=== PATIENT | male | born 2000 | race Caucasian/White ===

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

== ENCOUNTER → 2020-06-29 | Outpatient (CLI) | payer MEDICAID ==
[~2020-06-29] MED LIST: CLIN300C12 PO
[2020-06-29 11:59] LABS: BASOPHILS % (AUTO) 0 % (0-10); EOSINOPHILS % (AUTO) 1 % (0-10); HEMATOCRIT 39 % (40-54); HEMOGLOBIN 12.6 G/DL (13.3-17.7); LYMPHOCYTES # (AUTO) 1.9 X 10^3 (1.0-4.0); LYMPHOCYTES % (AUTO) 34 % (12-44); MEAN CORPUSCULAR HEMOGLOBIN 29 PG (25-34); MEAN CORPUSCULAR HGB CONC 33 G/DL (32-36); MEAN CORPUSCULAR VOLUME 88 FL (80-99); MEAN PLATELET VOLUME 11.9 FL (7.4-10.4); MONOCYTES # (AUTO) 0.2 X 10^3 (0.0-1.0); MONOCYTES % (AUTO) 4 % (0-12); NEUTROPHILS # (AUTO) 3.3 X 10^3 (1.8-7.8); NEUTROPHILS % (AUTO) 61 % (42-75); PLATELET COUNT 177 10^3/uL (130-400); WHITE BLOOD COUNT 5.5 10^3/uL (4.3-11.0)
[2020-06-29 12:10] LABS: BUN/CREATININE RATIO 23; CARBON DIOXIDE 28 MMOL/L (21-32); CHLORIDE 99 MMOL/L (98-107); GFR ESTIMATED > 60; GLUCOSE 104 MG/DL (70-105); POTASSIUM 4.2 MMOL/L (3.6-5.0); SODIUM 138 MMOL/L (135-145)
[2020-06-29 12:11] LABS: ALANINE AMINOTRANSFERASE 16 U/L (0-55); ALBUMIN 4.1 GM/DL (3.2-4.5); ALKALINE PHOSPHATASE 271 U/L (40-136); BILIRUBIN,TOTAL 0.2 MG/DL (0.1-1.0); CALCIUM 9.8 MG/DL (8.5-10.1); TOTAL PROTEIN 7.4 GM/DL (6.4-8.2)
== END ==
LOC: LAB FS 11:37
PROVIDERS: ATTEND Family Medicine
DX: U07.1 COVID-19 (principal)
CPT/HCPCS: 36415; 80053; 85025

== ENCOUNTER 2020-08-24 18:49 | Emergency (ER) | payer MEDICAID ==
--- NOTE | 2020-08-24 18:58 | ED Fever ---
History of Present Illness General Stated Complaint: FEVER History of Present Illness Date Seen by Provider: Aug 24, 2020 Time Seen by Provider: 18:53 Initial Comments 20-year-old male brought in with fever, decreased O2 saturation. Patient is has a history of cerebral palsy and diabetes insipidus. Mom reports that earlier today he had a fever greater than 100.2. Couple weeks ago he was treated with azithromycin for respiratory infection. Patient has a cough that has been present for about a month that is improving. Patient typically does not get urinary tract infections. Patient presented to urgent care who then sent him over here for further evaluation. Mom reports they gave him an extra dose of steroids this afternoon. Allergies and Home Medications Allergies Coded Allergies: No Known Drug Allergies (Unverified , 02/02/19) Home Medications Clindamycin HCl 300 Mg Capsule, 300 MG PO TID Prescribed by: VON MCDANIEL on 02/02/192210 Patient Home Medication List Home Medication List Reviewed: Yes Review of Systems Review of Systems Constitutional: No chills; fever; No weakness Respiratory: cough; No short of breath Cardiovascular: no symptoms reported Gastrointestinal: no symptoms reported Genitourinary: no symptoms reported Musculoskeletal: no symptoms reported Skin: no symptoms reported Psychiatric/Neurological: No Symptoms Reported Past Garcwmh-Zsrnhm-Dnrfqz Hx Past Med/Social Hx: Reviewed Nursing Past Med/Soc Hx Patient Social History Recent Hopitalizations: No Past Medical History Surgeries: Yes Orthopedic, Tonsillectomy Respiratory: No Cardiac: No Neurological: Yes Cerebral Palsy Genitourinary: No Gastrointestinal: No Musculoskeletal: No Endocrine: No HEENT: No Cancer: No Psychosocial: No Integumentary: No Blood Disorders: No Physical Exam Vital Signs - First Documented 08/24/20 18:52 Temp 37.4 Pulse 136 Resp 18 B/P (MAP) 154/94 (114) Pulse Ox 95 O2 Delivery Room Air Capillary Refill : Height: '" Weight: lbs. oz. kg; BMI Method: General Appearance: other (Patient small for size, consistent with cerebral palsy, exam was performed in his chair.) HEENT: other (Dry lips,) Neck: No lymphadenopathy (R), No lymphadenopathy (L) Respiratory: No lungs clear, No normal breath sounds; no respiratory distress Cardiovascular: tachycardia Gastrointestinal: non tender, soft, other (G-tube in place, clean dry no signs of infection) Extremities: other (No acute change) Neurologic/Psychiatric: other (Baseline mentation) Skin: No rash Focused Exam Lactate Level 08/24/20 19:05: Lactic Acid Level 3.37*H Lactic Acid Level Laboratory Tests Test 08/24/20 19:05 Lactic Acid Level 3.37 MMOL/L (0.50-2.00) *H Progress/Results/Core Measures Suspected Sepsis SIRS Temperature: Pulse: Respiratory Rate: Laboratory Tests 08/24/20 19:05: White Blood Count 14.4H Blood Pressure / Mean: 08/24/20 19:05: Lactic Acid Level 3.37*H Laboratory Tests 08/24/20 19:05: Creatinine 0.40L, Platelet Count 237, Total Bilirubin 0.2 Results/Orders Lab Results Laboratory Tests Test 08/24/20 19:05 08/24/20 19:26 Range/Units White Blood Count 14.4 H 4.3-11.0 10^3/uL Red Blood Count 4.76 4.35-5.85 10^6/uL Hemoglobin 13.5 13.3-17.7 G/DL Hematocrit 41 40-54 % Mean Corpuscular Volume 87 80-99 FL Mean Corpuscular Hemoglobin 28 25-34 PG Mean Corpuscular Hemoglobin Concent 33 32-36 G/DL Red Cell Distribution Width 12.7 10.0-14.5 % Platelet Count 237 130-400 10^3/uL Mean Platelet Volume 11.5 H 7.4-10.4 FL Immature Granulocyte % (Auto) 0 % Neutrophils (%) (Auto) 84 H 42-75 % Lymphocytes (%) (Auto) 6 L 12-44 % Monocytes (%) (Auto) 10 0-12 % Eosinophils (%) (Auto) 0 0-10 % Basophils (%) (Auto) 0 0-10 % Neutrophils # (Auto) 12.0 H 1.8-7.8 X 10^3 Lymphocytes # (Auto) 0.8 L 1.0-4.0 X 10^3 Monocytes # (Auto) 1.5 H 0.0-1.0 X 10^3 Eosinophils # (Auto) 0.0 0.0-0.3 10^3/uL Basophils # (Auto) 0.0 0.0-0.1 10^3/uL Immature Granulocyte # (Auto) 0.1 0.0-0.1 10^3/uL Neutrophils % (Manual) 83 % Lymphocytes % (Manual) 5 % Monocytes % (Manual) 8 % Eosinophils % (Manual) 0 % Basophils % (Manual) 0 % Band Neutrophils 4 % Sodium Level 142 135-145 MMOL/L Potassium Level 4.2 3.6-5.0 MMOL/L Chloride Level 103 98-107 MMOL/L Carbon Dioxide Level 26 21-32 MMOL/L Anion Gap 13 5-14 MMOL/L Blood Urea Nitrogen 10 7-18 MG/DL Creatinine 0.40 L 0.60-1.30 MG/DL Estimat Glomerular Filtration Rate > 60 BUN/Creatinine Ratio 25 Glucose Level 142 H 70-105 MG/DL Lactic Acid Level 3.37 *H 0.50-2.00 MMOL/L Calcium Level 10.2 H 8.5-10.1 MG/DL Corrected Calcium 10.0 8.5-10.1 MG/DL Total Bilirubin 0.2 0.1-1.0 MG/DL Aspartate Amino Transf (AST/SGOT) 18 5-34 U/L Alanine Aminotransferase (ALT/SGPT) 14 0-55 U/L Alkaline Phosphatase 258 H 40-136 U/L C-Reactive Protein 5.41 H <0.50 MG/DL Total Protein 8.0 6.4-8.2 GM/DL Albumin 4.3 3.2-4.5 GM/DL Urine Color YELLOW Urine Clarity CLEAR Urine pH 8.0 5-9 Urine Specific [place] 1.010 L 1.016-1.022 Urine Protein NEGATIVE NEGATIVE Urine Glucose (UA) NEGATIVE NEGATIVE Urine Ketones NEGATIVE NEGATIVE Urine Nitrite NEGATIVE NEGATIVE Urine Bilirubin NEGATIVE NEGATIVE Urine Urobilinogen 0.2 < = 1.0 MG/DL Urine Leukocyte Esterase NEGATIVE NEGATIVE Urine RBC (Auto) NEGATIVE NEGATIVE Urine RBC NONE /HPF Urine WBC 5-10 H /HPF Urine Squamous Epithelial Cells NONE /HPF Urine Renal Epithelial Cells 10-25 H /HPF Urine Crystals NONE /LPF Urine Bacteria NEGATIVE /HPF Urine Casts NONE /LPF Urine Mucus NEGATIVE /LPF Urine Culture Indicated NO My Orders Orders - AIYANA JULES L DO Cbc With Automated Diff (08/24/20 19:00) Comprehensive Metabolic Panel (08/24/20 19:00) Blood Culture (08/24/20 19:00) Sputum Culture (08/24/20 19:00) Urinalysis (08/24/20 19:00) Urine Culture (08/24/20 19:00) Chest 1 View Ap/Pa Only (08/24/20 19:00) Ed Iv/Invasive Line Start (08/24/20 19:00) Vital Signs Adult Sepsis Patie Q15M (08/24/20 19:00) Lactic Acid Analyzer (08/24/20 19:00) Procalcitonin (Pct) (08/24/20 19:05) Crp Fs (08/24/20 19:05) Manual Differential (08/24/20 19:05) Ceftriaxone (Rocephin) (08/24/20 19:36) Vital Signs/I&O 08/24/20 08/24/20 18:52 20:19 Temp 37.4 Pulse 136 115 Resp 18 20 B/P (MAP) 154/94 (114) 107/68 Pulse Ox 95 96 O2 Delivery Room Air Room Air Capillary Refill : Progress Note : Progress Note Patient with symptoms consistent of a viral syndrome. Patient was given Rocephin IV prior to discharge. Discussed with mom emergent transfer to [facility] versus close observation. This time will have close observation she will return to the ER if his symptoms worsen. Otherwise he will follow-up with his primary care tomorrow for recheck prior to the weekend. Patient is tolerating fluids without difficulty. Patient stable and discharged home Diagnostic Imaging Diagonstic Imaging: Xray Plain Films/CT/US/NM/MRI: chest Comments Date of Exam:08/24/20 CHEST 1 VIEW AP/PA ONLY INDICATION: Sepsis. FINDINGS: Frontal view of the chest demonstrates the lungs to be clear. The heart size and vascularity are normal. No pleural effusions are present. IMPRESSION: Normal portable chest. Reviewed: Reviewed by Me, Reviewed/Discussed Departure Impression Primary Impression: Viral syndrome Disposition: 01 HOME, SELF-CARE Condition: Stable Departure-Patient Inst. Referrals: RICO SHARIF MD (PCP/Family) Primary Care Physician Patient Instructions: VIRAL SYNDROME, Viral Upper Respiratory Infection, Adult (DC) Add. Discharge Instructions: Return to the ER if you have any concerns Follow-up with your primary care provider tomorrow for recheck of his symptoms AIYANA JULES DO Aug 24, 2020 18:58
[2020-08-24 19:19] LABS: HEMATOCRIT 41 % (40-54); HEMOGLOBIN 13.5 G/DL (13.3-17.7); MEAN CORPUSCULAR HEMOGLOBIN 28 PG (25-34); MEAN CORPUSCULAR HGB CONC 33 G/DL (32-36); MEAN CORPUSCULAR VOLUME 87 FL (80-99); MEAN PLATELET VOLUME 11.5 FL (7.4-10.4); PLATELET COUNT 237 10^3/uL (130-400); WHITE BLOOD COUNT 14.4 10^3/uL (4.3-11.0)
[2020-08-24 19:20] LABS: BASOPHILS % (AUTO) 0 % (0-10); EOSINOPHILS % (AUTO) 0 % (0-10); LYMPHOCYTES # (AUTO) 0.8 X 10^3 (1.0-4.0); LYMPHOCYTES % (AUTO) 6 % (12-44); MONOCYTES # (AUTO) 1.5 X 10^3 (0.0-1.0); MONOCYTES % (AUTO) 10 % (0-12); NEUTROPHILS % (AUTO) 84 % (42-75)
--- NOTE | 2020-08-24 19:24 | Diagnostic Imaging Report ---
INDICATION: Sepsis. FINDINGS: Frontal view of the chest demonstrates the lungs to be clear. The heart size and vascularity are normal. No pleural effusions are present. IMPRESSION: Normal portable chest. Dictated by: Dictated on workstation # [id number]
[2020-08-24] MEDS ORDERED: cefTRIAXone 1,000 MG in WATER (STERILE) FOR INJECTION 10 ML IV STA (19:36)
[2020-08-24 19:45] LABS: ALANINE AMINOTRANSFERASE 14 U/L (0-55); ALKALINE PHOSPHATASE 258 U/L (40-136); BILIRUBIN,TOTAL 0.2 MG/DL (0.1-1.0); BUN/CREATININE RATIO 25; CALCIUM 10.2 MG/DL (8.5-10.1); CARBON DIOXIDE 26 MMOL/L (21-32); CHLORIDE 103 MMOL/L (98-107); GFR ESTIMATED > 60; GLUCOSE 142 MG/DL (70-105); POTASSIUM 4.2 MMOL/L (3.6-5.0); SODIUM 142 MMOL/L (135-145)
[2020-08-24 19:46] LABS: ALBUMIN 4.3 GM/DL (3.2-4.5)
[2020-08-24 19:49] LABS: BACTERIA,URINE NEGATIVE /HPF; BILIRUBIN,URINE NEGATIVE (NEGATIVE); CLARITY,URINE CLEAR; COLOR,URINE YELLOW; GLUCOSE, URINE (UA) NEGATIVE (NEGATIVE); KETONES,URINE NEGATIVE (NEGATIVE); LEUKOCYTE ESTERASE ,URINE NEGATIVE (NEGATIVE); NITRITE,URINE NEGATIVE (NEGATIVE); PROTEIN,URINE NEGATIVE (NEGATIVE)
[2020-08-24 19:50] LABS: BAND NEUTROPHILS 4 %; BASOPHILS % (MANUAL) 0 %; EOSINOPHILS % (MANUAL) 0 %; LYMPHOCYTES % (MANUAL) 5 %; MONOCYTES % (MANUAL) 8 %; NEUTROPHILS % (MANUAL) 83 %
[2020-08-24 20:19] VITALS: BP 107/68
== END 2020-08-24 20:19 | disposition home or self-care (01) ==
LOC: EDUNIT# 18:49 → ER FS 18:50
DX: B34.9 Viral infection, unspecified (principal)
CPT/HCPCS: 36415; 71045; 80053; 81000; 83605; 84145; 85007; 85027; 86141; 87040; 87077; 87088; 87186

== ENCOUNTER → 2020-08-25 | Outpatient (CLI) | payer MEDICAID ==
[2020-08-25 12:32] LABS: HEMOGLOBIN 12.3 G/DL (13.3-17.7); MEAN CORPUSCULAR HEMOGLOBIN 28 PG (25-34); WHITE BLOOD COUNT 14.1 10^3/uL (4.3-11.0)
[2020-08-25 12:33] LABS: BASOPHILS % (AUTO) 0 % (0-10); EOSINOPHILS % (AUTO) 0 % (0-10); HEMATOCRIT 40 % (40-54); LYMPHOCYTES # (AUTO) 0.9 X 10^3 (1.0-4.0); MEAN CORPUSCULAR HGB CONC 31 G/DL (32-36); MEAN CORPUSCULAR VOLUME 91 FL (80-99); MEAN PLATELET VOLUME 11.1 FL (7.4-10.4); MONOCYTES # (AUTO) 1.1 X 10^3 (0.0-1.0); NEUTROPHILS # (AUTO) 12.1 X 10^3 (1.8-7.8); NEUTROPHILS % (AUTO) 86 % (42-75); PLATELET COUNT 202 10^3/uL (130-400)
[2020-08-25 12:34] LABS: LYMPHOCYTES % (AUTO) 6 % (12-44); MONOCYTES % (AUTO) 8 % (0-12)
[2020-08-25 13:09] LABS: BUN/CREATININE RATIO 18; CARBON DIOXIDE 27 MMOL/L (21-32); CHLORIDE 101 MMOL/L (98-107); GFR ESTIMATED > 60; GLUCOSE 106 MG/DL (70-105); POTASSIUM 4.6 MMOL/L (3.6-5.0); SODIUM 139 MMOL/L (135-145)
[2020-08-25 13:10] LABS: ALANINE AMINOTRANSFERASE 14 U/L (0-55); ALBUMIN 3.9 GM/DL (3.2-4.5); ALKALINE PHOSPHATASE 244 U/L (40-136); BILIRUBIN,TOTAL 0.3 MG/DL (0.1-1.0); CALCIUM 10.1 MG/DL (8.5-10.1); TOTAL PROTEIN 7.4 GM/DL (6.4-8.2)
== END ==
LOC: LAB FS 11:57
PROVIDERS: ATTEND Family Medicine
DX: R50.9 Fever, unspecified (principal)
CPT/HCPCS: 36415; 80053; 85025

== ENCOUNTER 2020-08-26 11:26 | Emergency (ER) | payer MEDICAID ==
--- NOTE | 2020-08-26 12:07 | ED General ---
General Chief Complaint: Eye Problems Stated Complaint: RT EYE SWELLING Source of Information: Family (parents) Exam Limitations: Other (pt has cerebral palsy) History of Present Illness Date Seen by Provider: Aug 26, 2020 Time Seen by Provider: 11:28 Initial Comments 20-year-old male presenting to the emergency department with his family. He has cerebral palsy and is in a wheelchair. Mom expresses concern about increasing redness and swelling to his right periorbital area. She states that he had some mild redness to his eye so she started treating with gentamicin eyedrops. She had him seen in the emergency department on , 24 August for concerns about fever and cough. She reports having issues trying to treat sinus infections for him and he recently had a Z-Brien to help with that. He did improve after that but still continued to have a lot of issues. He was running a fever and had tachycardia on so she gave a stress dose of steroids at home. He has diabetes insipidus. He was looking better off of his vital signs by the time he arrived in the emergency department and has evaluation was reviewed with [facility] by the doctor. They felt that it might be more viral but he did receive a dose of Rocephin. Mom states that yesterday he had an additional set of labs drawn through the clinic with Dr. Sharif. After that lab draw he was started on Amoxicillin and has had 3 doses of that. Mom laughingly said that it was a joke because he took it so much as a child she is sure he needs a stronger antibiotic now. One of the 2 blood culture bottles from the has grown Enterococcus faecalis and are awaiting sensitivities for that. The other blood culture bottle has no growth of anything. Mom states that he was having fever and still feeling bad on Friday and that is why he had repeat labs done. Today she brought him to the emergency department because she was concerned the swelling around his right eye could be cellulitis related to his sinuses. She is sure that he needs a stronger antibiotic if not admission to [facility]. Timing/Duration: 2-3 Days Associated Systoms: Cough, Fever/Chills; No Nausea/Vomiting, No Seizure, No Shortness of Air Allergies and Home Medications Allergies Coded Allergies: No Known Drug Allergies (Unverified , 02/02/19) Home Medications Clindamycin HCl 300 Mg Capsule, 300 MG PO TID Prescribed by: VON MCDANIEL on 02/02/19 2211 Patient Home Medication List Home Medication List Reviewed: Yes Review of Systems Review of Systems Constitutional: fever, malaise EENTM: see HPI Respiratory: cough Cardiovascular: other (mom reports tachycardia when she is not giving stress dose of steroids) Gastrointestinal: no symptoms reported Genitourinary: no symptoms reported Musculoskeletal: no symptoms reported Skin: see HPI, change in color (redness and swelling to right eyelids and starting on left now as well) Psychiatric/Neurological: No Symptoms Reported Past Ixktieg-Bpbrpl-Lldcjs Hx Past Med/Social Hx: Reviewed Nursing Past Med/Soc Hx Patient Social History Recent Hopitalizations: No Past Medical History Surgeries: Yes Orthopedic, Tonsillectomy Respiratory: No Cardiac: No Neurological: Yes Cerebral Palsy Genitourinary: No Gastrointestinal: No Musculoskeletal: No Endocrine: No HEENT: No Cancer: No Psychosocial: No Integumentary: No Blood Disorders: No Physical Exam Vital Signs Vital Signs - First Documented 08/26/20 11:30 Temp 36.7 Pulse 84 Resp 26 B/P (MAP) 97/59 (72) Pulse Ox 98 O2 Delivery Room Air Capillary Refill : Height, Weight, BMI Height: '" Weight: lbs. oz. kg; BMI Method: General Appearance: No Apparent Distress, Other (small stature consistent with cerebral palsy and examined in his wheelchair from home. ) HEENT: TMs Normal; No Moist Mucous Membranes (slightly dry mucus membranes); Ot her (mild redness and swelling to right upper eyelid without fluctuance or induration. no drainage from eye. conjunctiva clear) Neck: Supple Respiratory: Chest Non Tender, Lungs Clear, Normal Breath Sounds, No Accessory Muscle Use Cardiovascular: Regular Rate, Rhythm Gastrointestinal: Normal Bowel Sounds, No Pulsatile Mass, Non Tender, Soft, Other (feeding tube in place and appears good without signs of infection) Rectal: Deferred Extremity: No Pedal Edema, Other (chronic contractions of extremitities) Neurologic/Psychiatric: Alert, No Motor/Sensory Deficits Skin: Warm/Dry, Erythema (right upper eyelid) Focused Exam Lactate Level 08/26/20 12:10: Lactic Acid Level 1.68 Lactic Acid Level Laboratory Tests Test 08/26/20 12:10 Lactic Acid Level 1.68 MMOL/L (0.50-2.00) Progress/Results/Core Measures Suspected Sepsis SIRS Temperature: Pulse: Respiratory Rate: Laboratory Tests 08/26/20 12:10: White Blood Count 5.9 Blood Pressure / Mean: 08/26/20 12:10: Lactic Acid Level 1.68 Laboratory Tests 08/26/20 12:10: Creatinine 0.32L, Platelet Count 188, Total Bilirubin 0.2 Results/Orders Lab Results Laboratory Tests Test 08/26/20 12:10 Range/Units White Blood Count 5.9 4.3-11.0 10^3/uL Red Blood Count 4.09 L 4.35-5.85 10^6/uL Hemoglobin 11.6 L 13.3-17.7 G/DL Hematocrit 36 L 40-54 % Mean Corpuscular Volume 87 80-99 FL Mean Corpuscular Hemoglobin 28 25-34 PG Mean Corpuscular Hemoglobin Concent 33 32-36 G/DL Red Cell Distribution Width 12.5 10.0-14.5 % Platelet Count 188 130-400 10^3/uL Mean Platelet Volume 11.8 H 7.4-10.4 FL Immature Granulocyte % (Auto) 0 % Neutrophils (%) (Auto) 63 42-75 % Lymphocytes (%) (Auto) 23 12-44 % Monocytes (%) (Auto) 12 0-12 % Eosinophils (%) (Auto) 1 0-10 % Basophils (%) (Auto) 0 0-10 % Neutrophils # (Auto) 3.7 1.8-7.8 X 10^3 Lymphocytes # (Auto) 1.4 1.0-4.0 X 10^3 Monocytes # (Auto) 0.7 0.0-1.0 X 10^3 Eosinophils # (Auto) 0.1 0.0-0.3 10^3/uL Basophils # (Auto) 0.0 0.0-0.1 10^3/uL Immature Granulocyte # (Auto) 0.0 0.0-0.1 10^3/uL Sodium Level 135 135-145 MMOL/L Potassium Level 4.4 3.6-5.0 MMOL/L Chloride Level 98 98-107 MMOL/L Carbon Dioxide Level 27 21-32 MMOL/L Anion Gap 10 5-14 MMOL/L Blood Urea Nitrogen 7 7-18 MG/DL Creatinine 0.32 L 0.60-1.30 MG/DL Estimat Glomerular Filtration Rate > 60 BUN/Creatinine Ratio 22 Glucose Level 92 70-105 MG/DL Lactic Acid Level 1.68 0.50-2.00 MMOL/L Calcium Level 9.5 8.5-10.1 MG/DL Corrected Calcium 9.7 8.5-10.1 MG/DL Total Bilirubin 0.2 0.1-1.0 MG/DL Aspartate Amino Transf (AST/SGOT) 18 5-34 U/L Alanine Aminotransferase (ALT/SGPT) 14 0-55 U/L Alkaline Phosphatase 216 H 40-136 U/L C-Reactive Protein 9.82 H <0.50 MG/DL Total Protein 6.9 6.4-8.2 GM/DL Albumin 3.8 3.2-4.5 GM/DL My Orders Orders - MARLYN ERAZO MD Cbc With Automated Diff (08/26/20 11:49) Comprehensive Metabolic Panel (08/26/20 11:49) Blood Culture (08/26/20 11:49) Ed Iv/Invasive Line Start (08/26/20 11:49) Crp Fs (08/26/20 11:49) Lactic Acid Analyzer (08/26/20 11:49) Ceftriaxone (Rocephin) (08/26/20 13:52) Ondansetron Injection (Zofran Injectio (08/26/20 13:52) Vital Signs/I&O 08/26/20 08/26/20 11:30 14:54 Temp 36.7 36.7 Pulse 84 83 Resp 26 26 B/P (MAP) 97/59 (72) 123/67 (72) Pulse Ox 98 99 O2 Delivery Room Air Room Air Capillary Refill : Progress Note #1: Progress Note recheck labs and cultures. Progress Note #2: Progress Note labs show improvement with WBC count down to 5.6 from 14.4. He has improved lactic acid to 1.86. He does have elevated CRP. 1252 call placed to MIKE Adam, at [facility] Transfer line and discussed case. She contacted Pulmonary/critical care and called back with Dr. Rapp at 1303 He felt pt sounded stable from pulmonary standpoint and recommends speaking with Ophthalmology. 1317 Dr. Janeth Sanchez called back with [facility] and after review of case she felt like he might be worsening since he has increasing redness and swelling, despite improvement with labs. However, since she can not see him it is hard to tell. Will check with Mom since she has known him for 20 years and see what she thinks. If she wants to try switching antibiotic and then see if he improves in next 24-48 hours or if she feels he is progressing too quickly and needs more aggressive treatment with admit. 1346 after discussion with mom she felt things were progressing too quickly and she wanted to go to . Dr. Koo for the hospitalist service called back and accepted pt for transfer to be admitted to further treat and evaluate for preseptal vs periorbital celluliitis. He was given an additional dose of rocephin here. Will transport by POV by family since they have his wheelchair van and ability to take him comforatbly without Ambulance services. Departure Impression Primary Impression: Preseptal cellulitis of right eye Additional Impression: Fever Qualified Codes: R50.9 - Fever, unspecified Disposition: 02 XFER SHT-TRM HOSP Condition: Stable Transfer Transfer Reason: Exceeds level of care Time Spoke to Accepting Phy: 13:49 Transfer Progress Notes d/w Dr. Koo one of the hospitalists and he accepted for transfer to be adm itted and evaluated for cellulitis preseptal vs periorbital. Transfer Facility: [facility] Method of Transfer: Private Vehicle Departure-Patient Inst. Referrals: RICO SHARIF MD (PCP/Family) Primary Care Physician Images Head/Face 1 - Edema, Swelling (redness and swelling to right upper eyelid) MARLYN ERAZO MD Aug 26, 2020 12:07
[2020-08-26 12:28] LABS: BASOPHILS % (AUTO) 0 % (0-10); EOSINOPHILS % (AUTO) 1 % (0-10); HEMATOCRIT 36 % (40-54); HEMOGLOBIN 11.6 G/DL (13.3-17.7); LYMPHOCYTES % (AUTO) 23 % (12-44); MEAN CORPUSCULAR HEMOGLOBIN 28 PG (25-34); MEAN CORPUSCULAR HGB CONC 33 G/DL (32-36); MEAN CORPUSCULAR VOLUME 87 FL (80-99); MEAN PLATELET VOLUME 11.8 FL (7.4-10.4); MONOCYTES % (AUTO) 12 % (0-12); NEUTROPHILS % (AUTO) 63 % (42-75); PLATELET COUNT 188 10^3/uL (130-400); WHITE BLOOD COUNT 5.9 10^3/uL (4.3-11.0)
[2020-08-26 12:29] LABS: EOSINOPHILS # (AUTO) 0.1 10^3/uL (0.0-0.3); LYMPHOCYTES # (AUTO) 1.4 X 10^3 (1.0-4.0); MONOCYTES # (AUTO) 0.7 X 10^3 (0.0-1.0); NEUTROPHILS # (AUTO) 3.7 X 10^3 (1.8-7.8)
[2020-08-26 12:47] LABS: ALANINE AMINOTRANSFERASE 14 U/L (0-55); ALBUMIN 3.8 GM/DL (3.2-4.5); ALKALINE PHOSPHATASE 216 U/L (40-136); BILIRUBIN,TOTAL 0.2 MG/DL (0.1-1.0); BUN/CREATININE RATIO 22; CALCIUM 9.5 MG/DL (8.5-10.1); CARBON DIOXIDE 27 MMOL/L (21-32); CHLORIDE 98 MMOL/L (98-107); CREATININE SERUM 0.32 MG/DL (0.60-1.30); GFR ESTIMATED > 60; GLUCOSE 92 MG/DL (70-105); POTASSIUM 4.4 MMOL/L (3.6-5.0); SODIUM 135 MMOL/L (135-145); TOTAL PROTEIN 6.9 GM/DL (6.4-8.2)
[2020-08-26] MEDS ORDERED: ONDANSETRON 4 MG/2 ML (SDV) Z0FRAN IVP STA (13:52)
[2020-08-26] MEDS ORDERED: cefTRIAXone 1,000 MG in WATER (STERILE) FOR INJECTION 10 ML IV STA (13:52)
[2020-08-26 14:54] VITALS: BP 123/67
== END 2020-08-26 14:54 | disposition short-term general hospital (02) ==
LOC: EDUNIT# 11:26 → ER FS 11:28
DX: L03.213 Periorbital cellulitis (principal)
CPT/HCPCS: 36415; 80053; 83605; 85025; 86141; 87040

== ENCOUNTER 2021-01-26 16:52 | Emergency (ER) | payer MEDICAID ==
[~2021-01-26 16:52] MED LIST changes: +CLIN-144 PO; -CLIN300C12 PO
--- NOTE | 2021-01-26 17:15 | ED General ---
General Chief Complaint: Fever-Adult/Adol Stated Complaint: FEVER,THROAT PAIN Nursing Triage Note: PT PRESENTS WITH HIS MOM D/T HIS SPECIAL NEEDS AND MOM REPORTS HE STARTED RUNNING AFEVER 2 DAYS AGO AND SHE WANTS A BLOOD PANEL DONE ON HIM TO SEE IF SHE NEEDS TO TAKE HIM TO [facility]. Source of Information: Family (Mom) History of Present Illness Date Seen by Provider: Jan 26, 2021 Time Seen by Provider: 16:55 Initial Comments 20 yo male present with his mother, his primary caregiver, with complaints of low grade fevers since last night and cough. She knows he has multiple endocrine issues and she has given him a stress dose of his cortef. She was concerned he might have electrolyte imbalance or infection somewhere other than sinuses since he had recent RSV and course of antibiotic then. He has a cough but is not bringing anything up with it. Mom reports that he has a lingual tonsil that he is to have surgery on but has not been healthy enough to get it removed. Mom reports they hopefully can get it removed after the first of the year. Associated Systoms: No Chest Pain; Cough; No Diaphoresis; Fever/Chills (low grade fever); No Headaches; Malaise Allergies and Home Medications Allergies Coded Allergies: No Known Drug Allergies (Unverified , 02/02/19) Patient Home Medication List Home Medication List Reviewed: Yes Clindamycin HCl (Clindamycin HCl) 300 Mg Capsule, 300 MG PO TID Prescribed by: VON MCDANIEL on 02/02/192210 Review of Systems Review of Systems Constitutional: see HPI, fever (low grade fever since last night) EENTM: other (sinus drainage) Respiratory: cough, phlegm Cardiovascular: No edema Gastrointestinal: no symptoms reported Musculoskeletal: no symptoms reported Skin: No rash Psychiatric/Neurological: No Symptoms Reported Past Gmzbvbz-Atqufa-Rirjaa Hx Patient Social History Tobacco Use?: No Use of E-Cig and/or Vaping dev: No Substance use?: No Alcohol Use?: No Pt feels they are or have been: No Immunizations Up To Date PED Vaccines UTD: Yes Seasonal Allergies Seasonal Allergies: No Past Medical History Surgeries: Yes Orthopedic, Tonsillectomy Respiratory: No Cardiac: No Neurological: Yes Cerebral Palsy Genitourinary: No Gastrointestinal: No Musculoskeletal: No Endocrine: No HEENT: No Cancer: No Psychosocial: No Integumentary: No Blood Disorders: No Physical Exam Vital Signs Vital Signs - First Documented 01/26/21 17:09 Temp 36.7 Pulse 91 Resp 22 Pulse Ox 100 O2 Delivery Room Air Capillary Refill : Less Than 3 Seconds Height, Weight, BMI Height: '" Weight: lbs. oz. kg; BMI Method: General Appearance: No Apparent Distress, Chronically ill (development delay) HEENT: PERRL/EOMI; No Pharyngeal Erythema, No Tonsillar Exudate; Other (mild redness to left upper eyelid) Respiratory: Chest Non Tender, Lungs Clear; No Rhonci, No Stridor, No Wheezing; Other (transmitted upper airway congestion sounds) Cardiovascular: Regular Rate, Rhythm, Normal Peripheral Pulses Gastrointestinal: Normal Bowel Sounds, Non Tender, Soft, Other (feeding tube in place left upper abdomen) Extremity: Normal Capillary Refill, No Pedal Edema Neurologic/Psychiatric: Alert Skin: Warm/Dry Focused Exam Lactate Level 01/26/21 17:15: Lactic Acid Level 1.89 Lactic Acid Level Laboratory Tests Test 01/26/21 17:15 Lactic Acid Level 1.89 MMOL/L (0.50-2.00) Progress/Results/Core Measures Suspected Sepsis SIRS Temperature: Pulse: 91 Respiratory Rate: 22 Laboratory Tests 01/26/21 17:15: White Blood Count 13.6H Blood Pressure / Mean: 01/26/21 17:15: Lactic Acid Level 1.89 Laboratory Tests 01/26/21 17:15: Creatinine 0.39L, Platelet Count 190, Total Bilirubin 0.3 Results/Orders Lab Results Laboratory Tests Test 01/26/21 17:15 01/26/21 17:22 Range/Units White Blood Count 13.6 H 4.3-11.0 10^3/uL Red Blood Count 4.69 4.30-5.52 10^6/uL Hemoglobin 12.7 L 13.3-17.7 g/dL Hematocrit 40 40-54 % Mean Corpuscular Volume 85 80-99 fL Mean Corpuscular Hemoglobin 27 25-34 pg Mean Corpuscular Hemoglobin Concent 32 32-36 g/dL Red Cell Distribution Width 13.8 10.0-14.5 % Platelet Count 190 130-400 10^3/uL Mean Platelet Volume 11.1 9.0-12.2 fL Immature Granulocyte % (Auto) 0 % Neutrophils (%) (Auto) 79 H 42-75 % Lymphocytes (%) (Auto) 10 L 12-44 % Monocytes (%) (Auto) 10 0-12 % Eosinophils (%) (Auto) 0 0-10 % Basophils (%) (Auto) 0 0-10 % Neutrophils # (Auto) 10.8 H 1.8-7.8 X 10^3 Lymphocytes # (Auto) 1.4 1.0-4.0 X 10^3 Monocytes # (Auto) 1.4 H 0.0-1.0 X 10^3 Eosinophils # (Auto) 0.0 0.0-0.3 10^3/uL Basophils # (Auto) 0.0 0.0-0.1 10^3/uL Immature Granulocyte # (Auto) 0.0 0.0-0.1 10^3/uL Sodium Level 132 L 135-145 MMOL/L Potassium Level 4.8 3.6-5.0 MMOL/L Chloride Level 96 L 98-107 MMOL/L Carbon Dioxide Level 26 21-32 MMOL/L Anion Gap 10 5-14 MMOL/L Blood Urea Nitrogen 8 7-18 MG/DL Creatinine 0.39 L 0.60-1.30 MG/DL Estimat Glomerular Filtration Rate 282 BUN/Creatinine Ratio 21 Glucose Level 122 H 70-105 MG/DL Lactic Acid Level 1.89 0.50-2.00 MMOL/L Calcium Level 9.8 8.5-10.1 MG/DL Corrected Calcium 9.9 8.5-10.1 MG/DL Total Bilirubin 0.3 0.1-1.0 MG/DL Aspartate Amino Transf (AST/SGOT) 14 5-34 U/L Alanine Aminotransferase (ALT/SGPT) 14 0-55 U/L Alkaline Phosphatase 238 H 40-136 U/L C-Reactive Protein 19.46 H <0.50 MG/DL Total Protein 7.6 6.4-8.2 GM/DL Albumin 3.9 3.2-4.5 GM/DL Monoscreen NEGATIVE NEGATIVE Group A Streptococcus Screen NEGATIVE NEGATIVE My Orders Orders - MARLYN ERAZO MD Cbc With Automated Diff (01/26/21 17:11) Comprehensive Metabolic Panel (01/26/21 17:11) Blood Culture (01/26/21 17:11) Rapid Strep A Screen (01/26/21 17:11) Monotest (01/26/21 17:11) Ed Iv/Invasive Line Start (01/26/21 17:11) Crp Fs (01/26/21 17:11) Lactic Acid Analyzer (01/26/21 17:11) Chest 1 View Ap/Pa Only (01/26/21 17:11) Vital Signs/I&O 01/26/21 01/26/21 17:09 18:52 Temp 36.7 Pulse 91 88 Resp 22 24 B/P (MAP) Pulse Ox 100 99 O2 Delivery Room Air Room Air Capillary Refill : Less Than 3 Seconds Progress Note #1: Progress Note Obtain chest xray, labs, blood cultures, lactic acid. Progress Note #2: Time: 17:44 Progress Note CBC shows elevated white blood cell count of 13.6. Chemistry shows normal lactic Acid level 1.89. CRP elevated to 19.46. Sodium 132 with Cl 96. Glucose 122. CXR shows left lower lobe infiltrate/atelectasis. Progress Note #3: Time: 18:17 Progress Note After reviewing results and updating pt and mom of the patient, she requested I check with [facility] about the patient and see what they say. I spoke with Dr. Skelton, the advanced practice professional physician for Pulmonary. She reviewed his cultures. She stated the Cefdinir seemed like it would be ok. He has grown out pseudomonas in remote past so cipro would be another antibiotic to consider. Since he just started the Cefdinir it's reasonable to give it time to work and to add on chest physiotherapy and saline and albuterol nebulizer treatments to help loosen and break up congestion. If not improving or worsens could call the advanced practice professional pulmonary team and they might switch his antibiotic. Could have him re- evaluated if worsening as well to see if he needs admit or change in medicine. Diagnostic Imaging Diagonstic Imaging: Xray Plain Films/CT/US/NM/MRI: chest Comments [facility]. [place], [place] NAME: JOSEDOMITILA J MED REC#: [id number] PT STATUS: REG ER : 2000 PHYSICIAN: MARLYN ERAZO MD ADMIT DATE: 01/26/21/ER FS Draft Date of Exam:01/26/21 CHEST 1 VIEW AP/PA ONLY INDICATION: Fever. EXAMINATION: Portable semi-erect AP chest at 5:21 p.m. FINDINGS: The heart size is within normal limits and stable when compared to 08/24/2020. In the interval since the prior study alveolar/interstitial infiltrate has developed in the left lung base. This would be consistent with pneumonia/atelectasis. There is slightly increased density in the right perihilar region and there may be an element of mild pneumonia/atelectasis there as well. There is no pleural effusion identified. The mediastinum is not widened. There is marked levoscoliosis of the lumbar spine. There is no acute bony abnormality noted. IMPRESSION: There is left lower lobe pneumonia/atelectasis. There may also be an element of mild pneumonia/atelectasis in the right perihilar region. Dictated on workstation # [id number] Dict: 01/26/21 1728 Trans: 01/26/21 173 [id number] Interpreted by: YOUSIF ANDERSON MD Electronically signed by: Reviewed: Reviewed by Me Departure Impression Primary Impression: Left lower lobe pneumonia Qualified Codes: J18.9 - Pneumonia, unspecified organism Disposition: HOME, SELF-CARE Condition: Stable Departure-Patient Inst. Decision time for Depature: 18:45 Referrals: RICO SHARIF MD (PCP/Family) Primary Care Physician Patient Instructions: Pneumonia, Adult ED Add. Discharge Instructions: Continue on the Cefdinir antibiotic and give it a chance to work. If worsening over the weekend or not improving you could call to [facility] and ask to speak to the pulmonary team advanced practice professional and see if they want to change his antibiotic or try something different. If he gets a lot worse and is dropping his oxygen levels or having his heart racing or fever is going higher then you could return for further evaluation and recheck. Dr. Skelton, the advanced practice professional Liquid Sugar Fortifier at [facility] requested you call the clinic for follow up in general, as the clinic has been trying to reach you for a follow up appointment. Use the chest physiotherapy to help break up congestion and pneumonia, especi ally in the left lower lung. You could use the saline nebulized treatments or albuterol treatments up to every 4 hours if needed to help with his breathing and congestion. This would help to loosen his cough and congestion from the pneumonia. All discharge instructions reviewed with patient and/or family. Voiced understanding. MARLYN ERAZO MD Jan 26, 2021 17:15
[2021-01-26 17:25] LABS: BASOPHILS % (AUTO) 0 % (0-10); EOSINOPHILS % (AUTO) 0 % (0-10); HEMATOCRIT 40 % (40-54); HEMOGLOBIN 12.7 g/dL (13.3-17.7); LYMPHOCYTES # (AUTO) 1.4 X 10^3 (1.0-4.0); LYMPHOCYTES % (AUTO) 10 % (12-44); MEAN CORPUSCULAR HEMOGLOBIN 27 pg (25-34); MEAN CORPUSCULAR HGB CONC 32 g/dL (32-36); MEAN CORPUSCULAR VOLUME 85 fL (80-99); MEAN PLATELET VOLUME 11.1 fL (9.0-12.2); MONOCYTES # (AUTO) 1.4 X 10^3 (0.0-1.0); MONOCYTES % (AUTO) 10 % (0-12); NEUTROPHILS # (AUTO) 10.8 X 10^3 (1.8-7.8); NEUTROPHILS % (AUTO) 79 % (42-75); PLATELET COUNT 190 10^3/uL (130-400); WHITE BLOOD COUNT 13.6 10^3/uL (4.3-11.0)
--- NOTE | 2021-01-26 17:36 | Diagnostic Imaging Report ---
INDICATION: Fever. EXAMINATION: Portable semi-erect AP chest at 5:21 p.m. FINDINGS: The heart size is within normal limits and stable when compared to 08/24/2020. In the interval since the prior study alveolar/interstitial infiltrate has developed in the left lung base. This would be consistent with pneumonia/atelectasis. There is slightly increased density in the right perihilar region and there may be an element of mild pneumonia/atelectasis there as well. There is no pleural effusion identified. The mediastinum is not widened. There is marked levoscoliosis of the lumbar spine. There is no acute bony abnormality noted. IMPRESSION: There is left lower lobe pneumonia/atelectasis. There may also be an element of mild pneumonia/atelectasis in the right perihilar region. Dictated by: Dictated on workstation # [id number]
[2021-01-26 17:39] LABS: ALBUMIN 3.9 GM/DL (3.2-4.5); BILIRUBIN,TOTAL 0.3 MG/DL (0.1-1.0); CALCIUM 9.8 MG/DL (8.5-10.1); CREATININE SERUM 0.39 MG/DL (0.60-1.30); POTASSIUM 4.8 MMOL/L (3.6-5.0); TOTAL PROTEIN 7.6 GM/DL (6.4-8.2)
--- OUTSIDE RECORDS SUMMARY | 2021-01-29 11:19 | XMS REPORT | Clinical Summary ---
Author Author [facility] Organization [facility] Address Unknown Phone Unavailable Care Team Providers Care Director Audience Marketing Name Role Phone PCP Unavailable Allergies Not on File Medications Not on file Active Problems Not on file Social History Date Tobacco Use Types Packs/Day Years Used Never Assessed Sex Assigned at Date Recorded Not on file Last Filed Vital Signs Not on file Plan of Treatment Not on file Results Not on filefrom Last 3 Months
== END 2021-01-26 18:52 | disposition home or self-care (01) ==
LOC: EDUNIT# 16:52 → ER FS 16:53
DX: J18.1 Lobar pneumonia, unspecified organism (principal); G80.9 Cerebral palsy, unspecified
CPT/HCPCS: 36415; 71045; 80053; 83605; 85025; 86141; 86308; 87040; 87430

== ENCOUNTER 2021-04-14 20:15 | Emergency (ER) | payer MEDICAID ==
--- NOTE | 2021-04-14 21:00 | ED GI ---
General Chief Complaint: Abdominal/GI Problems Stated Complaint: NAUSEA/VOMITING Nursing Triage Note: Mother states that she started noticing the patient swallowing a lot and gagging early this morning. Patient has an extensive medical history including endocrine disorders. Patient also has CP and is wheelchair bound. Mother states that he has a PEG tube and when she gives him medications through the tube, he seems to vomit shortly after. Patient recieved an IM shot of cortisone at approximately 5pm. Mother states that he was given the stress dose. Mother would like the patient checked out. Patient is producing urine and his bowel movements have been normal. Patient would like our ER doctor to call an endocrine specialist at [facility] prior to doing any intervention. Source of Information: Patient Exam Limitations: No Limitations History of Present Illness Date Seen by Provider: Apr 14, 2021 Time Seen by Provider: 20:18 Initial Comments 20-year-old male with past medical history of cerebral palsy with developmental delay as well as adrenal insufficiency on chronic steroids coming in with his parents who are his caregivers due to these 4 episodes of vomiting today. Every time he tried to take his medications through his G-tube today he vomited. He was given 50 mg of IM Solu-Cortef for stress dose steroids several hours ago because of this. They brought him for evaluation. He is having normal bowel output and urinary output. Has had decreased intake and is G-tube, but did have around 150 cc of Pedialyte that he kept down. No fevers, cough, or any other concerns that the parents know of. The patient is nonverbal. Allergies and Home Medications Allergies Coded Allergies: No Known Drug Allergies (Unverified , 02/02/19) Patient Home Medication List Home Medication List Reviewed: Yes Clindamycin HCl (Clindamycin HCl) 300 Mg Capsule, 300 MG PO TID Prescribed by: VON MCDANIEL on 02/02/19 5040 Review of Systems Review of Systems Constitutional: No chills, No fever EENTM: No Nose Congestion Respiratory: Denies Cough Cardiovascular: Denies Syncope Gastrointestinal: Denies Abdominal Pain; Vomiting Genitourinary: Denies Hematuria Musculoskeletal: no symptoms reported Skin: no symptoms reported Psychiatric/Neurological: No Symptoms Reported Endocrine: No Symptoms Reported Hematologic/Lymphatic: No Symptoms Reported All Other Systems Reviewed Negative Unless Noted: Yes Past Yuuyadd-Blafqc-Bjkcom Hx Patient Social History Tobacco Use?: No Pt feels they are or have been: No Immunizations Up To Date PED Vaccines UTD: Yes Seasonal Allergies Seasonal Allergies: No Past Medical History Surgeries: Yes Orthopedic, Tonsillectomy Respiratory: No Cardiac: No Neurological: Yes Cerebral Palsy Genitourinary: No Gastrointestinal: No Musculoskeletal: No Endocrine: No HEENT: No Cancer: No Psychosocial: No Integumentary: No Blood Disorders: No Physical Exam Vital Signs Vital Signs - First Documented 04/14/21 20:46 Temp 36.4 Pulse 102 Resp 20 B/P (MAP) 92/59 (70) Pulse Ox 99 O2 Delivery Room Air Capillary Refill : Less Than 3 Seconds Height/Weight/BMI Height: '" Weight: lbs. oz. kg; BMI Method: General Appearance: WD/WN, no apparent distress, other (Thin, alert, nonverbal) HEENT: PERRL/EOMI, normal ENT inspection, pharynx normal Neck: non-tender, full range of motion, supple, normal inspection Respiratory: chest non-tender, lungs clear, normal breath sounds, no respiratory distress, no accessory muscle use Cardiovascular: regular rate, rhythm, no edema, no murmur Gastrointestinal: normal bowel sounds, non tender, soft; No distended, No guarding, No rebound Extremities: non-tender, normal inspection, no pedal edema, no calf tenderness, normal capillary refill, other (Thin, arms contracted) Back: normal inspection Neurologic/Psychiatric: alert, normal mood/affect Skin: normal color, warm/dry Lymphatic: no adenopathy Progress/Results/Core Measures Results/Orders Lab Results Laboratory Tests Test 04/14/21 20:40 04/14/21 21:30 Range/Units White Blood Count 14.0 H 4.3-11.0 10^3/uL Red Blood Count 5.41 4.30-5.52 10^6/uL Hemoglobin 15.1 13.3-17.7 g/dL Hematocrit 46 40-54 % Mean Corpuscular Volume 85 80-99 fL Mean Corpuscular Hemoglobin 28 25-34 pg Mean Corpuscular Hemoglobin Concent 33 32-36 g/dL Red Cell Distribution Width 13.4 10.0-14.5 % Platelet Count 174 130-400 10^3/uL Mean Platelet Volume 11.6 9.0-12.2 fL Immature Granulocyte % (Auto) 1 % Neutrophils (%) (Auto) 93 H 42-75 % Lymphocytes (%) (Auto) 4 L 12-44 % Monocytes (%) (Auto) 3 0-12 % Eosinophils (%) (Auto) 0 0-10 % Basophils (%) (Auto) 0 0-10 % Neutrophils # (Auto) 13.0 H 1.8-7.8 X 10^3 Lymphocytes # (Auto) 0.5 L 1.0-4.0 X 10^3 Monocytes # (Auto) 0.4 0.0-1.0 X 10^3 Eosinophils # (Auto) 0.0 0.0-0.3 10^3/uL Basophils # (Auto) 0.0 0.0-0.1 10^3/uL Immature Granulocyte # (Auto) 0.1 0.0-0.1 10^3/uL Neutrophils % (Manual) 95 % Lymphocytes % (Manual) 4 % Monocytes % (Manual) 1 % Sodium Level 131 L 135-145 MMOL/L Potassium Level 4.5 3.6-5.0 MMOL/L Chloride Level 93 L 98-107 MMOL/L Carbon Dioxide Level 24 21-32 MMOL/L Anion Gap 14 5-14 MMOL/L Blood Urea Nitrogen 13 7-18 MG/DL Creatinine 0.40 L 0.60-1.30 MG/DL Estimat Glomerular Filtration Rate 160 BUN/Creatinine Ratio 33 Glucose Level 105 70-105 MG/DL Calcium Level 10.0 8.5-10.1 MG/DL Corrected Calcium 9.8 8.5-10.1 MG/DL Total Bilirubin 0.3 0.1-1.0 MG/DL Aspartate Amino Transf (AST/SGOT) 16 5-34 U/L Alanine Aminotransferase (ALT/SGPT) 14 0-55 U/L Alkaline Phosphatase 236 H 40-136 U/L Total Protein 7.6 6.4-8.2 GM/DL Albumin 4.2 3.2-4.5 GM/DL Influenza Type A Antigen NEGATIVE NEGATIVE Influenza Type B Antigen NEGATIVE NEGATIVE My Orders Orders - CRISTIAN CHICAS MD Cbc With Automated Diff (04/14/21 20:53) Manual Differential (04/14/21 20:40) Influenza A & B Antigens (04/14/21 21:16) Covid 19 Inhouse Test (04/14/21 21:16) Hydrocortisone Injection (Solu-Cortef In (04/14/21 21:30) Comprehensive Metabolic Panel (04/14/21 21:30) Medications Given in ED Current Medications Medications Dose Ordered Sig/Wendy Route Start Time Stop Time Status Last Admin Dose Admin Hydrocortisone Sodium Succinate 50 mg ONCE ONCE IM 04/14/21 21:30 04/14/21 21:31 DC 04/14/21 22:05 50 MG Vital Signs/I&O 04/14/21 20:46 Temp 36.4 Pulse 102 Resp 20 B/P (MAP) 92/59 (70) Pulse Ox 99 O2 Delivery Room Air Blood Pressure Mean: 70 Progress Progress Note : Progress Note 20-year-old male with above history coming in due to vomiting. ABCs were intact and vitals were stable on presentation. Physical exam with him being at his baseline per his parents. Basic labs obtained and sodium was 127. I contacted [facility] given that is where his narcotics and vice detective is, he will do an ER to ER transfer given his diabetes insipidus as well as adrenal insufficiency. They recommended giving him another 50 mg of Solu-Cortef since he was underdosed earlier today which we did do. Potassium was initially elevated but hemolyzed, repeat was normal. The family wanted to go private vehicle to [facility], and the [facility] emergency department attending was agreeable to this. At the time of leaving his vitals were stable, he was alert, and in stable condition. Departure Impression Primary Impression: Hyponatremia Additional Impression: Adrenal insufficiency Disposition: [facility] Condition: Stable Transfer Transfer Reason: Exceeds level of care Time Spoke to Accepting Phy: 21:30 Transfer Progress Notes Spoke with Dr. Anand at the [facility] ER who accepted the transfer Transfer Time: 22:00 Transfer Facility: [facility] Method of Transfer: Private Vehicle Departure-Patient Inst. Referrals: RICO SHARIF MD (PCP/Family) Primary Care Physician CRISTIAN CHICAS MD Apr 14, 2021 21:00
[2021-04-14 21:07] LABS: BASOPHILS % (AUTO) 0 % (0-10); EOSINOPHILS % (AUTO) 0 % (0-10); HEMATOCRIT 46 % (40-54); HEMOGLOBIN 15.1 g/dL (13.3-17.7); LYMPHOCYTES % (AUTO) 4 % (12-44); MEAN CORPUSCULAR HEMOGLOBIN 28 pg (25-34); MEAN CORPUSCULAR HGB CONC 33 g/dL (32-36); MEAN CORPUSCULAR VOLUME 85 fL (80-99); MEAN PLATELET VOLUME 11.6 fL (9.0-12.2); MONOCYTES % (AUTO) 3 % (0-12); NEUTROPHILS % (AUTO) 93 % (42-75); PLATELET COUNT 174 10^3/uL (130-400)
[2021-04-14 21:08] LABS: LYMPHOCYTES # (AUTO) 0.5 X 10^3 (1.0-4.0); MONOCYTES # (AUTO) 0.4 X 10^3 (0.0-1.0)
[2021-04-14] MEDS ORDERED: HYDROCORTISONE 100 MG/2 ML (Solu-CORTEF) VIAL IM ONE (21:30)
[2021-04-14 21:42] LABS: LYMPHOCYTES % (MANUAL) 4 %; MONOCYTES % (MANUAL) 1 %; NEUTROPHILS % (MANUAL) 95 %
[2021-04-14 21:51] LABS: ALBUMIN 4.2 GM/DL (3.2-4.5); BILIRUBIN,TOTAL 0.3 MG/DL (0.1-1.0); CREATININE SERUM 0.4 MG/DL (0.60-1.30); POTASSIUM 4.5 MMOL/L (3.6-5.0); TOTAL PROTEIN 7.6 GM/DL (6.4-8.2)
[2021-04-14 22:07] VITALS: BP 110/62
== END 2021-04-14 22:07 | disposition short-term general hospital (02) ==
LOC: EDUNIT# 20:15 → ER FS 20:18
DX: E87.1 Hypo-osmolality and hyponatremia (principal); E27.40 Unspecified adrenocortical insufficiency; G80.9 Cerebral palsy, unspecified; Z20.822 Contact with and (suspected) exposure to COVID-19
CPT/HCPCS: 36415; 80053; 85007; 85027; 87636; 87804

== ENCOUNTER 2021-05-18 20:05 | Emergency (ER) | payer MEDICAID ==
[~2021-05-18] VITALS: Ht 147 cm; Wt 25.8 kg
[2021-05-18 20:09] VITALS: BP 107/92
--- NOTE | 2021-05-18 20:39 | ED Respiratory ---
General Chief Complaint: Cough/Cold/Flu Symptoms Stated Complaint: SOB,COUGH History of Present Illness Date Seen by Provider: May 18, 2021 Time Seen by Provider: 20:19 Initial Comments 20 yr M with PMH of cerebral palsy/ Diabetes Insipidus/ wheelchair bound/ non- verbal, is brought in by his parents wanting him to be transferred to [facility]. Pt's PCP gave a prescription for Azithromycin which pt has started. Patient has difficulty due to his inability to spit out the mucous and saliva. Mother has been suctioning him at home, but is unable to reach deeper sputum. Denies diarrhea, SOB, cough, sore throat, ear pain or discharge. Pt sleeps in a bed and is more reclined at night. He has been waking up with congestion needing suctioning. No known sick contacts. Allergies and Home Medications Allergies Coded Allergies: No Known Drug Allergies (Unverified , 02/02/19) Patient Home Medication List Home Medication List Reviewed: Yes Clindamycin HCl (Clindamycin HCl) 300 Mg Capsule, 300 MG PO TID Prescribed by: VON MCDNAIEL on 02/02/192210 Review of Systems Review of Systems Constitutional: no symptoms reported EENTM: nose congestion Respiratory: cough Cardiovascular: no symptoms reported Gastrointestinal: no symptoms reported Genitourinary: no symptoms reported Musculoskeletal: no symptoms reported Skin: no symptoms reported Psychiatric/Neurological: No Symptoms Reported Hematologic/Lymphatic: No Symptoms Reported Immunological/Allergic: no symptoms reported Past Fpjzkxi-Smoilm-Ftecym Hx Immunizations Up To Date PED Vaccines UTD: Yes Seasonal Allergies Seasonal Allergies: No Past Medical History Surgeries: Yes Orthopedic, Tonsillectomy Respiratory: No Cardiac: No Neurological: Yes Cerebral Palsy Genitourinary: No Gastrointestinal: No Musculoskeletal: No Endocrine: No HEENT: No Cancer: No Psychosocial: No Integumentary: No Blood Disorders: No Physical Exam Vital Signs - First Documented 05/18/21 20:09 Temp 36.5 Pulse 113 Resp 20 B/P (MAP) 107/92 (97) Pulse Ox 95 O2 Delivery Room Air Capillary Refill : Height: '" Weight: lbs. oz. kg; BMI Method: General Appearance: no apparent distress HEENT: PERRL/EOMI, normal ENT inspection, TMs normal, pharynx normal Respiratory: lungs clear, no respiratory distress, no accessory muscle use, rhonchi Cardiovascular: regular rate, rhythm, no edema Gastrointestinal: normal bowel sounds, soft, no organomegaly Extremities: other (contracted) Neurologic/Psychiatric: alert, other (cerebral palsy) Skin: normal color Progress/Results/Core Measures Suspected Sepsis SIRS Temperature: Pulse: Respiratory Rate: Laboratory Tests 05/18/21 20:53: White Blood Count 10.8 Blood Pressure / Mean: Laboratory Tests 05/18/21 20:53: Platelet Count 196 05/18/21 20:54: Creatinine 0.42L, Total Bilirubin < 0.2 Results/Orders Lab Results Laboratory Tests Test 05/18/21 20:53 05/18/21 20:54 Range/Units White Blood Count 10.8 4.3-11.0 10^3/uL Red Blood Count 5.05 4.30-5.52 10^6/uL Hemoglobin 13.9 13.3-17.7 g/dL Hematocrit 42 40-54 % Mean Corpuscular Volume 84 80-99 fL Mean Corpuscular Hemoglobin 28 25-34 pg Mean Corpuscular Hemoglobin Concent 33 32-36 g/dL Red Cell Distribution Width 13.4 10.0-14.5 % Platelet Count 196 130-400 10^3/uL Mean Platelet Volume 10.9 9.0-12.2 fL Immature Granulocyte % (Auto) 0 % Neutrophils (%) (Auto) 92 H 42-75 % Lymphocytes (%) (Auto) 6 L 12-44 % Monocytes (%) (Auto) 1 0-12 % Eosinophils (%) (Auto) 0 0-10 % Basophils (%) (Auto) 0 0-10 % Neutrophils # (Auto) 9.9 H 1.8-7.8 10^3/uL Lymphocytes # (Auto) 0.7 L 1.0-4.0 10^3/uL Monocytes # (Auto) 0.1 0.0-1.0 10^3/uL Eosinophils # (Auto) 0.0 0.0-0.3 10^3/uL Basophils # (Auto) 0.0 0.0-0.1 10^3/uL Immature Granulocyte # (Auto) 0.0 0.0-0.1 10^3/uL Neutrophils % (Manual) 91 % Lymphocytes % (Manual) 7 % Monocytes % (Manual) 2 % Sodium Level 130 L 135-145 MMOL/L Potassium Level 4.7 3.6-5.0 MMOL/L Chloride Level 95 L 98-107 MMOL/L Carbon Dioxide Level 24 21-32 MMOL/L Anion Gap 11 5-14 MMOL/L Blood Urea Nitrogen 10 7-18 MG/DL Creatinine 0.42 L 0.60-1.30 MG/DL Estimat Glomerular Filtration Rate 158 BUN/Creatinine Ratio 24 Glucose Level 138 H 70-105 MG/DL Calcium Level 10.0 8.5-10.1 MG/DL Corrected Calcium 8.5-10.1 MG/DL Total Bilirubin < 0.2 0.1-1.0 MG/DL Aspartate Amino Transf (AST/SGOT) 32 5-34 U/L Alanine Aminotransferase (ALT/SGPT) 22 0-55 U/L Alkaline Phosphatase 251 H 40-136 U/L Total Protein 7.8 6.4-8.2 GM/DL Albumin 4.6 H 3.2-4.5 GM/DL Influenza Type A Antigen NEGATIVE NEGATIVE Influenza Type B Antigen NEGATIVE NEGATIVE Group A Streptococcus Screen NEGATIVE NEGATIVE My Orders Orders - SINAI KIRAN MD Chest 1 View Ap/Pa Only (05/18/21 20:32) Cbc With Automated Diff (05/18/21 20:40) Comprehensive Metabolic Panel (05/18/21 20:40) Rapid Strep A Screen (05/18/21 20:40) Influenza A & B Antigens (05/18/21 20:40) Manual Differential (05/18/21 20:53) Vital Signs/I&O 05/18/21 20:09 Temp 36.5 Pulse 113 Resp 20 B/P (MAP) 107/92 (97) Pulse Ox 95 O2 Delivery Room Air Capillary Refill : Progress Note : Progress Note 1. CONGESTION: - CXR: unremarkable - CBC/ CMP - Rapid STrep Test: NEGATIVE - Rapid Flu Test: NEGATIVE - Pt's mother did a rapid COVID test at home yesterday and it was negative and does not want a hospital test - Pt's parents want pt to be transferred to [facility] for respiratory toiletry/ suctioning. - Also pt's family want to go by POV. Discussed with hospitalist team and they prefer pt to go by ambulance. CM will send their ambulance to [place] pick[place] the patient. 2. MILD DEHYDRATION & HYPONATREMIA: - s. Na is 130 and creatinine is 0.42 - Pt is a known hard stick to the staff. Will defer iv line since no acute need Diagnostic Imaging Diagonstic Imaging: Xray Plain Films/CT/US/NM/MRI: chest Comments [facility] [place], [place] NAME: DOMITILA GARCIA [facility] REC#: [id number] PT STATUS: REG ER : 2000 PHYSICIAN: SINAI KIRAN MD ADMIT DATE: 05/18/21/ER FS Draft Date of Exam:05/18/21 CHEST 1 VIEW AP/PA ONLY INDICATION: Cough. COMPARISON: 01/26/2021. FINDINGS: Single frontal view of the chest demonstrates normal heart size and pulmonary vascularity. The lungs show low inspiratory volumes, but are otherwise clear. No large pleural effusion or pneumothorax is seen. The visualized osseous structures show no acute abnormality. Included portions of the upper abdomen show a large amount of air and stool within the colon. IMPRESSION: No acute cardiopulmonary process. Dictated on workstation # [id number] Dict: 05/18/212057 Trans: 05/18/212102 E [id number] Interpreted by: MIA VARELA MD Electronically signed by: Departure Communication (Admissions) Time/Spoke to Admitting Phy: 22:[address] Hanna, hospitalist at [facility] Pt accepted for transfer and recommended EMS transfer, not POV Impression Primary Impression: Upper respiratory infection Qualified Codes: J06.9 - Acute upper respiratory infection, unspecified Additional Impression: Salivary secretion Disposition: SHT-TRM HOSP Condition: Stable Admissions Decision to Admit Reason: Admit from ER (General) Decision to Admit/Date: May 29, 2021 Time/Decision to Admit Time: 22:05 Transfer Transfer Reason: Patient preference Time Spoke to Accepting Phy: 22:05 Transfer Progress Notes See above note Method of Transfer: EMS Departure-Patient Inst. Referrals: RICO SHARIF MD (PCP/Family) Primary Care Physician SINAI KIRAN MD May 18, 2021 20:39
[2021-05-18 20:52] LABS: BASOPHILS % (AUTO) 0 % (0-10); EOSINOPHILS % (AUTO) 0 % (0-10); HEMATOCRIT 42 % (40-54); HEMOGLOBIN 13.9 g/dL (13.3-17.7); LYMPHOCYTES # (AUTO) 0.7 10^3/uL (1.0-4.0); LYMPHOCYTES % (AUTO) 6 % (12-44); MEAN CORPUSCULAR HEMOGLOBIN 28 pg (25-34); MEAN CORPUSCULAR HGB CONC 33 g/dL (32-36); MEAN CORPUSCULAR VOLUME 84 fL (80-99); MEAN PLATELET VOLUME 10.9 fL (9.0-12.2); MONOCYTES # (AUTO) 0.1 10^3/uL (0.0-1.0); MONOCYTES % (AUTO) 1 % (0-12); NEUTROPHILS # (AUTO) 9.9 10^3/uL (1.8-7.8); NEUTROPHILS % (AUTO) 92 % (42-75); PLATELET COUNT 196 10^3/uL (130-400); WHITE BLOOD COUNT 10.8 10^3/uL (4.3-11.0)
--- NOTE | 2021-05-18 21:03 | Diagnostic Imaging Report ---
INDICATION: Cough. COMPARISON: 01/26/2021. FINDINGS: Single frontal view of the chest demonstrates normal heart size and pulmonary vascularity. The lungs show low inspiratory volumes, but are otherwise clear. No large pleural effusion or pneumothorax is seen. The visualized osseous structures show no acute abnormality. Included portions of the upper abdomen show a large amount of air and stool within the colon. IMPRESSION: No acute cardiopulmonary process. Dictated by: Dictated on workstation # [id number]
[2021-05-18 21:14] LABS: CARBON DIOXIDE 24 MMOL/L (21-32); CHLORIDE 95 MMOL/L (98-107); POTASSIUM 4.7 MMOL/L (3.6-5.0); SODIUM 130 MMOL/L (135-145)
[2021-05-18 21:15] LABS: ALANINE AMINOTRANSFERASE 22 U/L (0-55); ALBUMIN 4.6 GM/DL (3.2-4.5); ALKALINE PHOSPHATASE 251 U/L (40-136); BILIRUBIN,TOTAL < 0.2 MG/DL (0.1-1.0); BUN/CREATININE RATIO 24; CREATININE SERUM 0.42 MG/DL (0.60-1.30); GFR ESTIMATED 158; GLUCOSE 138 MG/DL (70-105); TOTAL PROTEIN 7.8 GM/DL (6.4-8.2)
[2021-05-18 22:17] LABS: LYMPHOCYTES % (MANUAL) 7 %; MONOCYTES % (MANUAL) 2 %; NEUTROPHILS % (MANUAL) 91 %
== END 2021-05-19 01:56 | disposition short-term general hospital (02) ==
LOC: EDUNIT# 20:05 → ER FS 20:06
DX: J06.9 Acute upper respiratory infection, unspecified (principal); K11.8 Other diseases of salivary glands
CPT/HCPCS: 36415; 71045; 80053; 85007; 85027; 87430; 87804

== ENCOUNTER 2021-06-23 14:08 | Emergency (ER) | payer MEDICAID ==
[2021-06-23 14:12] VITALS: BP 101/76
--- NOTE | 2021-06-23 14:58 | ED Cough/URI ---
General Chief Complaint: Respiratory Problems Stated Complaint: RESPIRATORY PROBLEM Nursing Triage Note: Parents bring patient with c/o worsening in congestion. Mom states patient started to become congested last week and states it seems to be worse this week. Parents state patient will cough, but states patient is unable to cough anything up. Mom states patient was started on Augmentin and Prednisone 2 days ago. Mom states she would like to have a chest X-ray done on patient today to r/o pneumonia. Mom states patient has an enlarged tonsil that needs to come out, but states they had to post-pone surgery d/t covid. Source: family, caregiver Exam Limitations: physical impairment History of Present Illness Date Seen by Provider: Jun 23, 2021 Time Seen by Provider: 14:10 Initial Comments This 20 y/o wheel-chair bound male w/ cerebral palsy presents w/ water rights specialist who reports he has been coughing terribly for past several days and she is fearful he is going to choke on it.He is on Augmenting liquid through his G tube and on chronic steroids plus higher stress dose during his sickness. he has a "lingual tonsil" that his doctors at [facility] have been contemplating removing and COVID- related delays in elective surgery have thus far prevented it from being maldonado. She states "I would like a chest x-ray and then have you call [facility]." He has nebulizer and oral suction equipment at home but no oxygen and no-one trained on deep tracheal suction. He is not on anti-tussive. Timing/Duration: other (onset several days to a week or more ago, worse in past 3 days) Prior Episodes/Possible Cause: occasional episodes Modifying Factors: Improves With Antibiotics, Improves With Coughing Associated Symptoms: cough, nasal congestion, nasal drainage (improved on steroids and antibiotics) Allergies and Home Medications Allergies Coded Allergies: No Known Drug Allergies (Unverified , 02/02/19) Patient Home Medication List Home Medication List Reviewed: No Clindamycin HCl (Clindamycin HCl) 300 Mg Capsule, 300 MG PO TID Prescribed by: VON MCDANIEL on 02/02/19 040 Review of Systems Review of Systems Constitutional: see HPI Respiratory: see HPI, cough; No hemoptysis, No wheezing Cardiovascular: No edema, No syncope Gastrointestinal: No jaundice, No vomiting Skin: no symptoms reported Past Qbvdcon-Cclfau-Drezao Hx Patient Social History Tobacco Use?: No Smoking Status: Never a Smoker Smokeless Tobacco Frequency: Never a User Use of E-Cig and/or Vaping dev: No Use of E-Cig and/or Vaping Teto: Never a User Substance use?: No Alcohol Use?: No Pt feels they are or have been: Unable to obtain Immunizations Up To Date PED Vaccines UTD: Yes Influenza Vaccine Up-to-Date: No; Not Current Seasonal Allergies Seasonal Allergies: No Past Medical History Surgery/Hospitalization HX: CP Bilat. hips, Tonselectomy Surgeries: Yes Orthopedic, Tonsillectomy Respiratory: No Cardiac: No Neurological: Yes Cerebral Palsy Genitourinary: No Gastrointestinal: No Musculoskeletal: No Endocrine: No HEENT: No Cancer: No Psychosocial: No Nursing Suicide Risk Notes: Unable to assess d/t patient's medical history of Cerebral Palsy. Integumentary: No Blood Disorders: No Physical Exam Vital Signs - First Documented Capillary Refill : Height: '" Weight: lbs. oz. kg; 11.00 BMI Method: General Appearance: other (He has spasmodic cough w/ wet airway noise; between coughing paroxysms he is alert and calm and responsive to voice) Respiratory: no respiratory distress, no accessory muscle use; No crackles, No rales; rhonchi; No stridor, No wheezing Cardiovascular: normal peripheral pulses, regular rate, rhythm, no edema Gastrointestinal: non tender, soft Extremities: non-tender, other (marked chronic deformities) Neurologic/Psychiatric: alert Skin: normal color, warm/dry; No cyanosis, No diaphoresis Progress/Results/Core Measures Suspected Sepsis SIRS Temperature: Pulse: 95 Respiratory Rate: 22 Blood Pressure 101 /76 Mean: 84 Results/Orders My Orders Orders - JERARDO VILLALOBOS MD Chest 1 View Ap/Pa Only (06/23/21 14:25) Soft Tissue Neck (06/23/21 14:25) Vital Signs/I&O 06/23/21 06/23/21 14:12 14:12 Temp 36.6 Pulse 95 Resp 22 B/P (MAP) 101/76 (84) O2 Delivery Room Air Room Air Capillary Refill : 2 Blood Pressure Mean: 84 Progress Note : Time: 15:13 Progress Note CXR, partially limited by habitus and inspiratory depth, shows bilateral kenneth- hilar infiltrates plus subglottic narrowing. Soft tissue neck study shows subglottic narrowing and normal epiglottis. I reviewed these images myself (not officially read) and discussed w/ Mom/water rights specialist [facility] I spoke w/ Er (Dr Kieran Lassiter) and hospitalist (Dr Grier) and they have accepted transfer as ER to ER with possible admit Departure Impression Primary Impression: Bronchopneumonia Additional Impressions: Cerebral palsy Adrenal insufficiency Disposition: 02 XFER SHT-TRM HOSP Condition: Stable Transfer Transfer Reason: Exceeds level of care Time Spoke to Accepting Phy: 15:[address] Lassiter & Dr Grier Transfer Time: 15:26 Method of Transfer: Private Vehicle (at Mom's insistance; EMS declined) Departure-Patient Inst. Referrals: RICO SHARIF MD (PCP) Primary Care Physician Add. Discharge Instructions: Since you decline ambulance transfer, go straight to ER at [facility] in [place] and check in as ER patient to be treated / evaluated for (probable) admission All discharge instructions reviewed with patient and/or family. Voiced understanding. JERARDO VILLALOBOS MD Jun 23, 2021 14:58
--- NOTE | 2021-06-23 15:15 | Diagnostic Imaging Report ---
INDICATION: Persistent cough. Nonverbal. TECHNIQUE: Single view chest 2:46 PM. CORRELATION STUDY: 05/18/2021. FINDINGS: Heart size and mediastinum are relatively stable given distortion from the scoliotic curvature of the spine. There does appear to be scattered areas of bronchiectasis. There are more prominent opacities in the particularly central aspect of both lung winter. Felice consolidating infiltrate is not demonstrated. No evidence of overt aspiration. Tracheal shadow unremarkable. IMPRESSION: 1. Bilateral pulmonary particularly perihilar infiltrate-like opacities favoring viral-type pneumonitis and/or reactive airway changes. 2. Findings superimposed on likely chronic bronchiectasis and bronchial wall thickening. Dictated by: Dictated on workstation # [id number]
--- NOTE | 2021-06-23 15:15 | Diagnostic Imaging Report ---
INDICATION: Nonverbal, persistent cough. TECHNIQUE: AP and lateral views of soft tissue neck 2:52 PM. CORRELATION STUDY: None. FINDINGS: The airway is patent. Epiglottis appears unremarkable. No radiographic evidence for soft tissue foreign body. The retropharyngeal soft tissues appear unremarkable and normal in thickness. No abnormal soft tissue gas collection. IMPRESSION: Unremarkable soft tissue examination of the neck. Airway appears nonobstructed. Dictated by: Dictated on workstation # [id number]
== END 2021-06-23 15:48 | disposition short-term general hospital (02) ==
LOC: EDUNIT# 14:08 → ER FS 14:09
DX: J18.0 Bronchopneumonia, unspecified organism (principal); G80.9 Cerebral palsy, unspecified; E27.40 Unspecified adrenocortical insufficiency
CPT/HCPCS: 70360; 71045

== ENCOUNTER → 2021-10-05 | Outpatient (CLI) | payer MEDICAID ==
[2021-10-05 12:15] LABS: BASOPHILS % (AUTO) 0 % (0-10); EOSINOPHILS % (AUTO) 0 % (0-10); HEMATOCRIT 42 % (40-54); HEMOGLOBIN 12.8 g/dL (13.3-17.7); LYMPHOCYTES # (AUTO) 1.1 10^3/uL (1.0-4.0); LYMPHOCYTES % (AUTO) 7 % (12-44); MEAN CORPUSCULAR HEMOGLOBIN 26 pg (25-34); MEAN CORPUSCULAR HGB CONC 30 g/dL (32-36); MEAN CORPUSCULAR VOLUME 85 fL (80-99); MEAN PLATELET VOLUME 11.5 fL (9.0-12.2); MONOCYTES # (AUTO) 0.6 10^3/uL (0.0-1.0); MONOCYTES % (AUTO) 4 % (0-12); NEUTROPHILS # (AUTO) 13.7 10^3/uL (1.8-7.8); NEUTROPHILS % (AUTO) 88 % (42-75); PLATELET COUNT 244 10^3/uL (130-400); WHITE BLOOD COUNT 15.5 10^3/uL (4.3-11.0)
[2021-10-05 12:33] LABS: POTASSIUM 4.8 MMOL/L (3.6-5.0)
[2021-10-05 12:34] LABS: CALCIUM 9.9 MG/DL (8.5-10.1); CREATININE SERUM 0.52 MG/DL (0.60-1.30)
[2021-10-05 12:42] LABS: BAND NEUTROPHILS 13 %; LYMPHOCYTES % (MANUAL) 10 %; MONOCYTES % (MANUAL) 1 %; NEUTROPHILS % (MANUAL) 73 %
[2021-10-05 12:43] LABS: ATYPICAL LYMPHOCYTES 2 %; BASOPHILS % (MANUAL) 0 %; EOSINOPHILS % (MANUAL) 0 %; HYPOCHROMASIA SLIGHT; METAMYELOCYTES % 1 %
== END ==
LOC: LAB FS 11:49
PROVIDERS: ATTEND Family Medicine
DX: R50.9 Fever, unspecified (principal)
CPT/HCPCS: 36415; 80048; 85007; 85027

== ENCOUNTER → 2021-10-15 | Outpatient (CLI) | payer MEDICAID ==
[2021-10-15 14:00] LABS: BASOPHILS % (AUTO) 0 % (0-10); EOSINOPHILS # (AUTO) 0.4 10^3/uL (0.0-0.3); EOSINOPHILS % (AUTO) 3 % (0-10); HEMATOCRIT 41 % (40-54); HEMOGLOBIN 12.7 g/dL (13.3-17.7); LYMPHOCYTES # (AUTO) 3.4 10^3/uL (1.0-4.0); LYMPHOCYTES % (AUTO) 26 % (12-44); MEAN CORPUSCULAR HEMOGLOBIN 25 pg (25-34); MEAN CORPUSCULAR HGB CONC 31 g/dL (32-36); MEAN CORPUSCULAR VOLUME 82 fL (80-99); MEAN PLATELET VOLUME 10.7 fL (9.0-12.2); MONOCYTES # (AUTO) 1.3 10^3/uL (0.0-1.0); MONOCYTES % (AUTO) 9 % (0-12); NEUTROPHILS # (AUTO) 8.3 10^3/uL (1.8-7.8); NEUTROPHILS % (AUTO) 62 % (42-75); PLATELET COUNT 399 10^3/uL (130-400); WHITE BLOOD COUNT 13.5 10^3/uL (4.3-11.0)
[2021-10-15 14:20] LABS: POTASSIUM 5.3 MMOL/L (3.6-5.0)
[2021-10-15 14:21] LABS: CREATININE SERUM 0.41 MG/DL (0.60-1.30)
== END ==
LOC: LAB FS 13:47
PROVIDERS: ATTEND Family Medicine
DX: J39.8 Other specified diseases of upper respiratory tract (principal); R53.83 Other fatigue
CPT/HCPCS: 36415; 80048; 85025

== ENCOUNTER → 2021-12-12 | Outpatient (CLI) | payer MEDICAID ==
--- NOTE | 2021-12-12 13:50 | Diagnostic Imaging Report ---
INDICATION: Difficulty feeding. EXAMINATION: KUB at 1:12 PM. FINDINGS: There is severe scoliosis of the lumbar spine, convex to the left. The lung bases are clear. The bowel gas pattern is normal. There are no pathologic masses or calcifications. The patient has had internal fixation of the proximal femurs bilaterally. There appears be a gastrostomy tube projecting over the stomach. IMPRESSION: Scoliotic deformity of the lumbar spine. No acute abnormality is seen in the abdomen. Dictated by: Dictated on workstation # [id number]
== END ==
LOC: RAD FS 12:47
PROVIDERS: ATTEND Nurse Practitioner Family
DX: M41.86 Other forms of scoliosis, lumbar region (principal); R63.30 Feeding difficulties, unspecified
CPT/HCPCS: 74018

== ENCOUNTER → 2021-12-21 | Outpatient (CLI) | payer MEDICAID ==
--- NOTE | 2021-12-21 16:08 | Diagnostic Imaging Report ---
INDICATION: Evaluate gastric tube position. COMPARISON: None. FINDINGS: Two frontal radiographic views of the abdomen were obtained and demonstrate radiopaque tubing projecting over the upper midline abdomen, presumably coiled within the antrum of the stomach. Exact position and patency of the PEG tube, however, cannot be directly assessed on this exam. Small bowel loops are nondistended. There is no large collection of free intraperitoneal air. No unexpected radiopaque foreign bodies are seen. There is severe levoscoliotic deformity of the lumbar spine. IMPRESSION: 1. Indwelling gastric tube as above. 2. Nonobstructed small bowel gas pattern. Dictated by: Dictated on workstation # [id number]
== END ==
LOC: RAD FS 13:55
PROVIDERS: ATTEND Nurse Practitioner Family
DX: P92.9 Feeding problem of newborn, unspecified (principal)
CPT/HCPCS: 74018

== ENCOUNTER → 2022-01-21 | Outpatient (CLI) | payer MEDICAID ==
[2022-01-21 16:06] LABS: ALBUMIN 4.2 GM/DL (3.2-4.5); BILIRUBIN,TOTAL 0.2 MG/DL (0.1-1.0); CALCIUM 9.7 MG/DL (8.5-10.1); CREATININE SERUM 0.47 MG/DL (0.60-1.30); POTASSIUM 5.1 MMOL/L (3.6-5.0); TOTAL PROTEIN 7.5 GM/DL (6.4-8.2)
--- NOTE | 2022-01-21 16:58 | Diagnostic Imaging Report ---
INDICATION: Constipation. COMPARISON: 12/21/2021. FINDINGS: Single frontal radiographic view of the abdomen was obtained and demonstrates moderate air and stool scattered throughout the colon. Small bowel loops are nondistended. There is no large collection of free intraperitoneal air. No unexpected radiopaque foreign bodies are seen. Note is made of severe levoscoliotic deformity of the lumbar spine. Postsurgical changes in the proximal femurs are noted. Indwelling percutaneous gastrostomy tube is also again noted. IMPRESSION: 1. Moderate colonic air and stool. Please correlate for constipation. 2. Nonobstructed small bowel gas pattern. Dictated by: Dictated on workstation # [id number]
== END ==
LOC: RAD FS 14:52
PROVIDERS: ATTEND Nurse Practitioner Family
DX: K59.00 Constipation, unspecified (principal)
CPT/HCPCS: 36415; 74018; 80053

== ENCOUNTER → 2022-02-21 | Outpatient (CLI) | payer MEDICAID ==
[2022-02-21 17:05] LABS: POTASSIUM 4.4 MMOL/L (3.6-5.0)
[2022-02-21 17:06] LABS: CALCIUM 9.7 MG/DL (8.5-10.1); CREATININE SERUM 0.48 MG/DL (0.60-1.30)
== END ==
LOC: LAB FS 16:02
PROVIDERS: ATTEND Pediatrics Pediatric Endocrinology
DX: E23.0 Hypopituitarism (principal)
CPT/HCPCS: 36415; 80048

== ENCOUNTER → 2022-02-21 | Outpatient (CLI) | payer MEDICAID ==
--- NOTE | 2022-02-21 16:40 | Diagnostic Imaging Report ---
EXAMINATION: Abdomen 1 view HISTORY: EVAL FOR SANTOYO PH CAPSULE COMPARISON: None available. FINDINGS: There is a radiopaque structure within the distal sigmoid colon. Percutaneous gastrostomy tube is seen. Nonobstructive bowel gas pattern. Severe curvature of the spine. Surgical changes of both hips. IMPRESSION: Radiopacity overlying the sigmoid colon which may correspond to the history of Santoyo pH capsule. Dictated by: Dictated on workstation # [id number]
== END ==
LOC: RAD FS 15:57
PROVIDERS: ATTEND Nurse Practitioner Family
DX: Z03.821 Encounter for observation for suspected ingested foreign body ruled out (principal)
CPT/HCPCS: 74018

== ENCOUNTER 2022-11-26 19:34 | Emergency (ER) | payer MEDICAID ==
--- NOTE | 2022-11-26 19:44 | ED Cough/URI ---
General Chief Complaint: Cough/Cold/Flu Symptoms Stated Complaint: POST OP COMPLICATIONS History of Present Illness Date Seen by Provider: Nov 26, 2022 Time Seen by Provider: 19:42 Initial Comments 22 yr M with PMH of Cerebral Palsy who is wheel chair bound and nonverbal/ Diabetes Insipidus/ Recent surgery : Montrell Funsopplication which was done this past weekend for acid reflux, and is brought in by his parents with c/o increased secretions and fever with chills since he was discharged on Friday. Parents report that they have been suctioning the patient every 5 minutes all last night and today due to excessive frothy secretions. Mother gave pt Tylenol prior to coming to the ER. Denies diarrhea, vomiting, known sick contacts. Allergies and Home Medications Allergies Coded Allergies: No Known Drug Allergies (Unverified , 02/02/19) Patient Home Medication List Home Medication List Reviewed: Yes Clindamycin HCl (Clindamycin HCl) 300 Mg Capsule, 300 MG PO TID Prescribed by: VON MCDANIEL on 02/02/192210 Review of Systems Review of Systems Constitutional: chills, fever EENTM: nose congestion Respiratory: phlegm, other Cardiovascular: no symptoms reported Gastrointestinal: no symptoms reported Genitourinary: no symptoms reported Musculoskeletal: no symptoms reported Skin: no symptoms reported Psychiatric/Neurological: No Symptoms Reported Hematologic/Lymphatic: No Symptoms Reported Immunological/Allergic: no symptoms reported Past Wjthocm-Zfwsyk-Zncfrw Hx Immunizations Up To Date PED Vaccines UTD: Yes Seasonal Allergies Seasonal Allergies: No Past Medical History Surgery/Hospitalization HX: CP Bilat. hips, Tonselectomy Surgeries: Yes Orthopedic, Tonsillectomy Respiratory: No Cardiac: No Neurological: Yes Cerebral Palsy Genitourinary: No Gastrointestinal: No Musculoskeletal: No Endocrine: No HEENT: No Cancer: No Psychosocial: No Integumentary: No Blood Disorders: No Physical Exam Vital Signs - First Documented 11/26/22 19:40 Temp 37.7 Pulse 122 Resp 16 B/P (MAP) 102/70 (81) Pulse Ox 100 O2 Delivery Room Air Capillary Refill : Height: '" Weight: lbs. oz. kg; 11.00 BMI Method: General Appearance: moderate distress HEENT: PERRL/EOMI, other (secretionson tongue, secretions are frothy and profuse) Neck: non-tender, full range of motion, supple Respiratory: no accessory muscle use, rhonchi (diffuse bilateral rhonchi) Cardiovascular: tachycardia Gastrointestinal: non tender, soft, other (pt has a feeding tube) Extremities: other (contractures in all extremities) Neurologic/Psychiatric: alert Skin: normal color Progress/Results/Core Measures Suspected Sepsis SIRS Temperature: Pulse: Respiratory Rate: Blood Pressure / Mean: Results/Orders Lab Results Laboratory Tests Test 11/26/22 19:48 Range/Units Influenza Type A (RT-PCR) Not Detected Not Detecte Influenza Type B (RT-PCR) Not Detected Not Detecte SARS-CoV-2 RNA (RT-PCR) Not Detected Not Detecte Group A Streptococcus Screen Not Detected NotDetected My Orders Orders - SINAI KIRAN MD Influenza A And B By Pcr (11/26/22 19:44) Covid 19 Inhouse Test (11/26/22 19:44) Rapid Strep A Screen (11/26/22 19:44) Chest 1 View Ap/Pa Only (11/26/22 19:45) Vital Signs/I&O 11/26/22 19:40 Temp 37.7 Pulse 122 Resp 16 B/P (MAP) 102/70 (81) Pulse Ox 100 O2 Delivery Room Air Capillary Refill : Progress Note : Progress Note 1. ASPIRATION PNEUMONIA - CXR: Prominent interstitial markings throughout the lungs, which may represent inflammatory/infectious process. No focal consolidation or pleural effusion. - COVID test/ Rapid flu test/ Rapid strep test: negative - In the ER, parents have been suctioningpt every 5 to 10 minutes. - Discussed with hospitalist at [facility] and accepted for admission - Parents insist on going by private vehicle only and do not want to go by ambulance. Diagnostic Imaging Diagonstic Imaging: Xray Plain Films/CT/US/NM/MRI: chest Comments [facility]. [place], [place] NAME: DOMITILA GARCIA MED REC#: [id number] PT STATUS: REG ER : 2000 PHYSICIAN: SINAI KIRAN MD ADMIT DATE: 11/26/22/ER FS Signed Date of Exam:11/26/22 CHEST 1 VIEW AP/PA ONLY EXAMINATION: Chest 1 view HISTORY: Cough. COMPARISON: 06/23/2021. FINDINGS: The lung volumes are normal. Mildly prominent interstitial markings are seen throughout the lungs. No focal consolidation is seen. No large pleural effusion or pneumothorax is seen. The cardiomediastinal silhouette is normal in size and contour. No acute osseous abnormality is seen. Extensive fusion is seen throughout the thoracic and lumbar spine. IMPRESSION: 1. Prominent interstitial markings throughout the lungs, which may represent inflammatory/infectious process. No focal consolidation or pleural effusion. Dictated by: Dictated on workstation # [id number] Dict: 11/26/222030 Trans: 11/26/222039 CHIQUITA [id number] Interpreted by: OBI JACOB DO Electronically signed by: OBI JACOB DO 11/26/222039 Departure Communication (Admissions) Time/Spoke to Admitting Phy: 21:37 Discussed with [facility] Hospitalist, Dr. Salazar Impression Primary Impression: Aspiration pneumonia Qualified Codes: J69.0 - Pneumonitis due to inhalation of food and vomit Disposition: XFER SHT-TRM HOSP Condition: Stable Admissions Decision to Admit Reason: Admit from ER (General) Decision to Admit/Date: Nov 26, 2022 Time/Decision to Admit Time: 21:00 Transfer Transfer Reason: Exceeds level of care Time Spoke to Accepting Phy: 21:37 Transfer Progress Notes Discussed with hospitlaistDr Salazar and accepted for transfer Transfer Facility: [facility] Method of Transfer: Private Vehicle Departure-Patient Inst. Referrals: RICO SHARIF MD (PCP) Primary Care Physician SINAI KIRAN MD Nov 26, 2022 19:44
--- NOTE | 2022-11-26 20:35 | Diagnostic Imaging Report ---
EXAMINATION: Chest 1 view HISTORY: Cough. COMPARISON: 06/23/2021. FINDINGS: The lung volumes are normal. Mildly prominent interstitial markings are seen throughout the lungs. No focal consolidation is seen. No large pleural effusion or pneumothorax is seen. The cardiomediastinal silhouette is normal in size and contour. No acute osseous abnormality is seen. Extensive fusion is seen throughout the thoracic and lumbar spine. IMPRESSION: 1. Prominent interstitial markings throughout the lungs, which may represent inflammatory/infectious process. No focal consolidation or pleural effusion. Dictated by: Dictated on workstation # [id number]
[2022-11-26 23:30] VITALS: BP 102/70
== END 2022-11-26 23:30 | disposition short-term general hospital (02) ==
LOC: EDUNIT# 19:34 → ER FS 19:36
DX: J69.0 Pneumonitis due to inhalation of food and vomit (principal); Z99.3 Dependence on wheelchair; Z20.822 Contact with and (suspected) exposure to COVID-19; Z28.310 Unvaccinated for COVID-19
CPT/HCPCS: 71045; 87430; 87636